=== PATIENT | female | born 1985 | race African-American/Black ===

== ENCOUNTER 2019-10-08 00:15 | Emergency (ER) | payer BC ==
[2019-10-08 00:42] VITALS: BP 110/69; PULSE 80; TEMP 98.1; BMI 35.2
--- NOTE | 2019-10-08 01:23 | PDOC ---
Attending Attestation - Resident Resident Name: Tai Oconnor - HPI HPI: 10/08/19 03:03 Pt presents to the ED complaining of atraumatic upper back pain after heavy lifting at work. Denies injuries or fever. Pain is made worse by movement of her back or upper arms. Has been taking large doses of motrin withot relief. 10/08/19 03:05 - Physicial Exam PE: 10/08/19 03:04 Agree with resident exam. Patient is alert and oriented and in no acute distress. No spinous process tenderness. + tenderiness in the trapezious muscle b/l. 10/08/19 03:05 - Medical Decision Making 10/08/19 03:05 Pt presents to the Ed complaining of atraumtic upper back pain. No vertebral tenderness or concern for spinal disorder. Most likely muscular pain. Will discharge home with instructions to return to the ED for worsening symptoms. 10/08/19 03:06
[2019-10-08] MEDS ORDERED: LIDOCAINE 5% TOPICAL PATCH TP ONE (02:09)
[2019-10-08] MEDS ORDERED: ACETAMINOPHEN 325 MG TABLET (FP) PO ONE (02:09)
[2019-10-08] MEDS ORDERED: CYCLOBENZAPRINE HCL 10 MG TABLET (FP) PO ONE (02:09)
[2019-10-08] MEDS ORDERED: ACETAMINOPHEN 325 MG TABLET (FP) ONE (02:11)
[2019-10-08] MEDS ORDERED: CYCLOBENZAPRINE HCL 10 MG TABLET (FP) ONE (02:11)
[2019-10-08] MEDS ORDERED: LIDOCAINE 5% TOPICAL PATCH ONE (02:11)
--- NOTE | 2019-10-08 02:14 | PDOC ---
History of Present Illness - General Chief Complaint: Pain Stated Complaint: NECK AND BACK PAIN Time Seen by Provider: 10/08/19 01:22 - History of Present Illness Initial Comments: The pt is a 34F w/ no reported PMH who presents for evaluation of 1 week of neck and upper back pain. The pain is described as b/l, intermittent, worse with laying/movement/touch, and has not been alleviated by anything she can identify. She has tried Ibuprofen, Meloxicam, and her daughter's lidoderm patch as well as heating pads. She denies fevers, changes in sensation, weakness, chest pain, trouble breathing, cough, abdominal pain, trouble walking, N/V, or other muscle pains. 10/08/19 02:09 Past History - Past Medical History Allergies/Adverse Reactions: Allergies Allergy/AdvReac Type Severity Reaction Status Date / Time annabel Allergy Severe Itching Verified 10/08/19 00:32 No Known Drug Allergies Allergy Verified 10/08/19 00:32 Home Medications: Ambulatory Orders Albuterol Sulfate Inhaler - [Ventolin HFA Inhaler -] 2 inh PO Q6H #1 inh Cyclobenzaprine HCl [Flexeril -] 10 mg PO TID PRN #18 tablet 10/08/19 COPD: No Other medical history: Pt denies - Psycho Social/Smoking Cessation Hx Smoking History: Never smoked Have you smoked in the past 12 months: No Number of Cigarettes Smoked Daily: 1 Information on smoking cessation initiated: No Hx Alcohol Use: No Drug/Substance Use Hx: No Substance Use Type: None Review of Systems - Review of Systems Able to Perform ROS?: Yes Comments:: GENERAL/CONSTITUTIONAL: No fever or chills. No weakness HEAD, EYES, EARS, NOSE AND THROAT: No change in vision. No change in hearing. No sore throat CARDIOVASCULAR: No chest pain or shortness of breath RESPIRATORY: Denies cough, hemoptysis GASTROINTESTINAL: No nausea, vomiting, diarrhea or constipation GENITOURINARY: No dysuria, frequency, or change in urination MUSCULOSKELETAL: per HPI SKIN: No rash NEUROLOGIC: No headache, vertigo, loss of consciousness, or change in strength/ sensation ENDOCRINE: No increased thirst. No abnormal weight change HEMATOLOGIC/LYMPHATIC: No anemia, easy bleeding, or history of blood clots ALLERGIC/IMMUNOLOGIC: No hives or skin allergy 10/08/19 02:11 Is the patient limited [place]ian proficient: No *Physical Exam - Vital Signs Last Vital Signs Temp Pulse Resp BP Pulse Ox 98.1 F 80 18 110/69 96 10/08/19 00:33 10/08/19 00:33 10/08/19 00:33 10/08/19 00:33 10/08/19 00:33 - Physical Exam GENERAL: Awake, alert, and oriented to person/place/time, in no acute distress HEAD: No signs of trauma, normocephalic, atraumatic EYES: PERRLA, EOMI, sclera anicteric, conjunctiva clear ENT: Hearing grossly normal, nares patent, oropharynx clear without exudates. Moist mucosa NECK: No midline TTP BACK: No midline TTP, no step-offs LUNGS: No distress, speaks in full sentences, clear to auscultation bilaterally HEART: Regular rate and rhythm, normal S1 and S2, no murmurs appreciated, peripheral pulses normal and equal bilaterally ABDOMEN: Soft, nontender, normoactive bowel sounds. No guarding, no rebound EXTREMITIES: Normal inspection, Normal range of motion, no edema. No clubbing or cyanosis NEUROLOGICAL: Cranial nerves II through XII grossly intact. Normal speech, normal gait, no focal sensorimotor deficits SKIN: Warm, Dry 10/08/19 02:12 Medical Decision Making - Medical Decision Making The pt is a 34F w/ no reported PMH who presents for evaluation of 1 week of neck and upper back pain. ED Course Pt w/ likely muscular strain Will treat with Flexeril, Tylenol, and Lidoderm patch for symptomatic relief 10/08/19 02:13 Plan for D/C w/ PCP f/u Discharge instructions and return precautions given Patient in agreement and verbalized understanding Dispo: Home 10/08/19 03:29 Discharge - Discharge Information Problems reviewed: Yes Clinical Impression/Diagnosis: Muscle spasm Condition: Stable - Admission No - Additional Discharge Information Prescriptions: Cyclobenzaprine HCl [Flexeril -] 10 mg PO TID PRN #18 tablet PRN Reason: Muscle Spasms - Follow up/Referral Referrals: David Wyatt MD [Primary Care Provider] - - Patient Discharge Instructions Patient Printed Discharge Instructions: DI for Musculoskeletal Pain Additional Instructions: You were seen in the Emergency Department for evaluation of back/neck pain. Your pain is likely due to muscular strain. Review the handout provided at discharge. Follow up with your primary care provider within a week. For pain you may take Tylenol 650mg every 6 hours and Ibuprofen 600mg every 6-8 hours, alternating them each time. A prescription for Flexeril was sent to your pharmacy, take as directed if the Tylenol/Ibuprofen is not sufficient for your pain. Return to the Emergency Department if you develop fevers, chest pain, trouble breathing, worsening pain, change in sensation, worsening symptoms, or any new/ concerning symptoms. - Post Discharge Activity Work/Back to School Note: Back to Work
[2019-10-08] MEDS ORDERED: LIDOCAINE PATCH REMOVAL MC SCH (22:00)
== END 2019-10-08 03:39 | disposition home or self-care (01) ==
LOC: JER 00:15
DX: M62.830 Muscle spasm of back (principal); X50.0XXA Overexertion from strenuous movement or load, initial encounter; Y93.89 Activity, other specified; Y92.238 Other place in hospital as the place of occurrence of the external cause; Y99.0 Civilian activity done for income or pay; Z91.018 Allergy to other foods
CPT/HCPCS: 99282-25

== ENCOUNTER 2025-03-06 05:35 | Emergency (ER) | payer BC ==
[2025-03-06 05:46] VITALS: BP 128/81; PULSE 71; RESP 18; TEMP 98.4; BMI 39.1
[2025-03-06] MEDS: KETOROLAC TROMETHAMINE 15 MG/ML VIAL IM ONE (06:26)
[2025-03-06] MEDS ORDERED: LIDOCAINE 5% TOPICAL PATCH ONE (06:28)
[2025-03-06] MEDS ORDERED: ACETAMINOPHEN 325 MG TABLET (FP) ONE (06:28)
[2025-03-06] MEDS: LIDOCAINE 5% TOPICAL PATCH TP ONE (06:32)
[2025-03-06] MEDS: ACETAMINOPHEN 500 MG TABLET (FP) PO ONE (06:32)
[2025-03-06] MEDS ORDERED: LIDOCAINE PATCH REMOVAL MC SCH (22:00)
== END 2025-03-06 07:05 | disposition home or self-care (01) ==
LOC: JER 05:35
DX: M25.561 Pain in right knee (principal); M25.461 Effusion, right knee; X50.1XXA Overexertion from prolonged static or awkward postures, initial encounter; Y93.41 Activity, dancing
CPT/HCPCS: 73564-TC-RT-FY; 99283-25